=== PATIENT | female | born 1980 | race Caucasian/White ===

== ENCOUNTER 2017-06-15 23:53 | Emergency (ER) | payer OTHER ==
[~2017-06-15] VITALS: Ht 157.5 cm; Wt 75.5 kg
[2017-06-16 00:16] VITALS: Ht 157.5 cm; Wt 75.5 kg
[2017-06-16] MEDS ORDERED: ONDANSETRON (ODT) 4 MG TAB ODT STA (06:11)
[2017-06-16] MEDS ORDERED: ACETAMINOPHEN 325 MG TAB PO ONE (06:30)
[2017-06-16 06:51] LABS: ADD UMIC YES; UR ASCORBIC ACID NEGATIVE (NEGATIVE); UR BILIRUBIN (Dip) NEGATIVE (NEGATIVE); UR BLOOD (Dip) 2+ mg/dL (NEGATIVE); UR CLARITY SLIGHTLY CLOUDY (CLEAR); UR COLOR YELLOW (YELLOW); UR GLUCOSE (Dip) NEGATIVE (NEGATIVE); UR KETONES (Dip) NEGATIVE (NEGATIVE); UR LEUKOCYTE ESTERASE (Dip) TRACE Leu/ul (NEGATIVE); UR NITRITE (Dip) NEGATIVE (NEGATIVE); UR RBC 2 /HPF (0-5); UR SPECIFIC GRAVITY (Dip) 1.016 (1.003-1.030); UR SQUAMOUS EPITHELIAL CELL MODERATE /HPF (FEW); UR TOTAL PROTEIN (Dip) NEGATIVE (NEGATIVE); UR UROBILINOGEN (Dip) NEGATIVE (NEGATIVE)
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
[2017-06-16] MEDS ORDERED: ONDA4TAB14 PO (08:41)
[2017-06-16] MEDS ORDERED: ACET325T33 PO (08:41)
[2017-06-16 08:50] VITALS: BP 131/72; PULSE 72; RESP 18; TEMP 98.6
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
== END 2017-06-16 08:53 | disposition home or self-care (01) ==
LOC: FTE 23:53
DX: S39.92XA Unspecified injury of lower back, initial encounter (principal); R11.0 Nausea; R42 Dizziness and giddiness; V49.40XA Driver injured in collision with unspecified motor vehicles in traffic accident, initial encounter
CPT/HCPCS: 70450; 71010; 72072; 72100; 72125; 76705; 81001; Z7502; Z7610